=== PATIENT | male | born 1975 | race Caucasian/White ===

== ENCOUNTER 2016-09-01 12:12 | Emergency (ER) | payer OTHER ==
[~2016-09-01] VITALS: Ht 167.6 cm; Wt 129.0 kg
[2016-09-01 12:14] VITALS: Ht 167.6 cm; Wt 129.0 kg
[2016-09-01] MEDS ORDERED: FLUORESCEIN STRIP RIGHT EYE ONE (13:00)
[2016-09-01] MEDS ORDERED: TETRACAINE 0.5% 4 ML OPH RIGHT EYE ONE (13:00)
[2016-09-01] MEDS ORDERED: KETO5DRO79 RIGHT EYE (13:13)
--- NOTE | 2016-09-01 15:28 | ERD ---
ER Documentation Chief Complaint Date/Time DATE: 09/01/16 TIME: 15:16 Chief Complaint RIGHT EYE PAIN X3 DAYS, THINKS SOMETHING INSIDE HPI 40-year-old male complaining of right eye irritation 3 days. Patient stated that he was wiping the right eye with his hand 3 days ago, he thinks that something had gotten into his eye. He has intense photophobia, cannot stand open his eyes. He said that relative looked into his eye and told him that he has something on his eye. Denies blurry vision. Denies eye discharge. Denies fever or chills. Denies nausea or vomiting. ROS All systems reviewed and are negative except as per history of present illness. Medications Home Meds Active Scripts Ketorolac Tromethamine Oph (Ketorolac Tromethamine Oph) 0.4%-5 Ml Opht Drops, 1 DROP RIGHT EYE QID Y for PAIN for 2 Days, EA Prov:KELLY YU. WIRELESS NETWORK ENGINEER 09/01/16 Allergies Allergies: Coded Allergies: No Known Allergy (Unverified , 09/01/16) PMhx/Soc History of Surgery: Yes (APPENDECTOMY) Anesthesia Reaction: No Hx Neurological Disorder: No Hx Respiratory Disorders: No Hx Cardiac Disorders: Yes (HTN , HIGH CHOLESTEROL ) Hx Psychiatric Problems: No Hx Miscellaneous Medical Probl: No Hx Alcohol Use: Yes (ONCE IN A WHILE) Hx Substance Use: No Hx Tobacco Use: No (QUIT 6 MONTHS AGO ) Smoking Status: Former smoker Physical Exam Vitals Vital Signs Date Time Temp Pulse Resp B/P Pulse Ox O2 Delivery O2 Flow Rate FiO2 09/01/16 12:14 97.9 66 20 168/104 98 Physical Exam General: Well-developed, well-nourished, conscious and coherent, in no distress Skin: Warm and dry without rash, good texture and turgor Head: Normocephalic without evidence of trauma Eyes: Sclera and conjunctivae injected on the right; small, pinpoint, dark colored cornea foreign body noted at 9 o'clock position. Pupils equal, round, and reactive to light; extraocular movements are intact Neck: Supple without meningismus or adenopathy. Carotids are equal. Trachea midline. No bruits or JVD Chest: Normal AP diameter. Good expansion without retractions. Nontender. Lungs are clear to auscultate bilaterally with good tidal volume Heart: Regular rate and rhythm. No murmur, rub, or gallops heard Abdomen: Soft and nontender without masses, guarding, or rebound. Bowel sounds are active. No hepatosplenomegaly Neuro: Alert and oriented 4, GCS 15. Cranial nerves grossly intact. Motor and sensory exams nonfocal. Moves all extremities. Speech clear. Gait normal Results 24 hrs Current Medications Medications (Trade) Dose Ordered Sig/Amanda Route PRN Reason Start Time Stop Time Status Last Admin Dose Admin Tetracaine HCl (Tetracaine 0.5% Steri-Unit Rosaura) 1 drop ONCE ONCE RIGHT EYE 09/01/16 13:00 09/01/16 13:01 DC Fluorescein Sodium ([id number]) 1 strip ONCE ONCE RIGHT EYE 09/01/16 13:00 09/01/16 13:01 DC Procedures/MDM 40-year-old male present ED was apparent corneal foreign body in his right eye. Attempts were made to remove the foreign body, attempts were unsuccessful. Tetracaine ophthalmic solution was instilled into patient's right eye. Fluoresceins dye was then applied. Patient was examined under Wood's lamp. No dye uptake was noted. Since the foreign body occurred 3 days ago, likely that his corneal epithelial cells had grown over the foreign body. Patient is referred to warp dyeing vat tender for follow-up tomorrow to remove the foreign body. Visual acuity: Left 20/15, right 20/20, bilateral 20/30. I doubt globe disruption, hyphema, retrobulbar hematoma, orbital fracture. I doubt adult acute angle-closure glaucoma, optic neuritis, central retinal artery occlusion, retinal detachment, orbital or periorbital cellulitis, corneal ulcer. Patient appears well, stable for discharge and outpatient management. Medical decision making shared with patient and family. Education provided to patient and family. Patient and family expressed understanding of the plan. Medications on discharge: Ketorolac ophthalmic. Follow-up: Business Intelligence Engineer tomorrow Departure Diagnosis: Primary Impression: Foreign body, eye Condition: Good Patient Instructions: Foreign Object in the Cornea Referrals: [facility] Hours: Mon - Fri 9:00 AM - 5:00 PM Additional Instructions: Follow up with [facility] tomorrow. KELLY YU NP Sep 01, 2016 15:28
== END 2016-09-01 13:26 | disposition home or self-care (01) ==
LOC: FTE 12:12
DX: T15.91XA Foreign body on external eye, part unspecified, right eye, initial encounter (principal); I10 Essential (primary) hypertension; X58.XXXA Exposure to other specified factors, initial encounter; Y92.9 Unspecified place or not applicable; Z87.891 Personal history of nicotine dependence
CPT/HCPCS: 99283